=== PATIENT | female | born 1970 | race Caucasian/White ===

== ENCOUNTER 2020-12-17 15:54 | Emergency (ER) | payer OTHER ==
[~2020-12-17] VITALS: Ht 152.4 cm; Wt 68.0 kg
[2020-12-17] MEDS ORDERED: ADERAL (16:14)
[2020-12-17] MEDS ORDERED: CLONAZEPAM0.5 MG (16:14)
== END 2020-12-17 19:42 | disposition home or self-care (01) ==
LOC: ER 15:54
DX: R10.2 Pelvic and perineal pain (principal)